=== PATIENT | female | born 1930 | race Caucasian/White ===

== ENCOUNTER 2018-07-02 10:23 | Observation (INO) | payer OTHER ==
[~2018-07-02] VITALS: Ht 162.6 cm; Wt 62.6 kg
--- NOTE | ~2018-07-02 | P ---
[facility] [place] [address] PROCEDURE REPORT Name: MARK KIRKLAND Room #: 207-P [facility]..#: [id number] Admission: 07/02/18 Attend Phys: Chad Cadet MD Discharge: Date of : [birth year] Report #: [id number] THIS REPORT FOR: //name// CC: Jevon Cadet PREOPERATIVE DIAGNOSIS: Sick sinus syndrome. POSTOPERATIVE DIAGNOSIS: Sick sinus syndrome. PROCEDURES PERFORMED: Dual chamber pacemaker implantation. HISTORY: The patient is an 87-year-old with a history of paroxysmal atrial fibrillation on amiodarone therapy. She has developed symptomatic bradycardia despite stopping the amiodarone therapy. She is here for dual-chamber pacemaker implantation with the plans of resuming amiodarone post-device implant. ANESTHESIA: The patient underwent MAC anesthesia with no anesthesia related complications. DESCRIPTION OF PROCEDURE: The patient underwent informed consent. We discussed the details of the procedure including the risks, which include but not limited to bleeding, infection, vascular damage, cardiac perforation and pneumothorax. She understood these risks and was willing to proceed. The patient was brought to the EP laboratory in a fasting and sedated state, prepped and draped in a sterile fashion, received IV antibiotics and underwent a venogram showing patency of left axillary vein. Next, I injected lidocaine at the incision site. Incision was made. A pocket was created over the prepectoral fascia and then access was obtained twice to the left axillary vein. I did accidentally stick the axillary artery once, but held pressure and there was no recurrent bleeding. Next, sheaths were positioned using the modified Seldinger technique and then I placed a lead into the right ventricular apex and another lead into the right atrial appendage both with adequate pacing and sensing thresholds. These leads were sutured to the prepectoral fascia and then connected to the device. The pocket was irrigated with vancomycin and then I closed the pocket in three layers using 2-0 for the deep layer, 3-0 for the middle layer and 4-0 for the subcuticular layer. Surgical glue was placed to the outer skin layer. The patient awoke neurologically hemodynamically intact with no complications and no significant bleeding. The implanted pacemaker was an MRI compatible device given her history of arthritis and hip replacements and need for future imaging also with peripheral vascular disease with an upcoming carotid endarterectomy. The implanted pacemaker is [employer], model #EM7142, serial #[id number]. The atrial lead was a [employer] model #PCD3248M, serial #[id number] with a P-wave of 1.2 millivolts, pacing impedance of 410 ohms and the pacing threshold of 1.5 volts at 0.4 milliseconds. [facility] [address] [place] [address] PROCEDURE REPORT Name: MARK KIRKLAND Room #: 207-P [facility] M.R.#: [id number] Admission: 07/02/18 Attend Phys: Chad Cadet MD Discharge: Date of : 07/10/[birth year] Report #: [id number] lead was a [employer] model #CED0264A, serial #[id number] with an R-wave of 8.3 millivolts, a pacing impedance of 560 ohms and the pacing threshold of 0.5 volts at 0.4 milliseconds. The device was programmed to the DDDR 60-120 mode. Of note, it appears that the patient does have some impairment in AV conduction as well as AV block was at around 90 beats per minute. Therefore, the chronic RV pacing may be unavoidable. CONCLUSIONS: 1. Successful dual-chamber pacemaker implantation. 2. Satisfactory atrial and ventricular pacing and sensing thresholds. By: [id number] Chad Cadet MD /nt
--- NOTE | ~2018-07-02 | D ---
[facility] [place] [address] DISCHARGE SUMMARY Name: MARK KIRKLAND Room #: 207-P [facility] MAscencion#: [id number] Admission: 07/02/18 Attend Phys: Chad Cadet MD Discharge: 07/03/18 Date of : [birth year]/10/[birth year] Report #: [id number] THIS REPORT FOR: //name// CC: Jevon Cadet DATE OF SERVICE: 07/03/2018 DISCHARGE DIAGNOSES: 1. Sick sinus syndrome. 2. Tachycardia-bradycardia syndrome. 3. Symptomatic bradycardia. 4. Paroxysmal atrial fibrillation. PROCEDURES PERFORMED: Dual chamber [employer] pacemaker implantation. HISTORY OF PRESENT ILLNESS: The patient is an 87-year-old with history of recurrent paroxysmal atrial fibrillation who has developed worsening bradycardia on amiodarone therapy. This was stopped, but she has continued to have symptomatic bradycardia and therefore she is here for dual chamber pacemaker implantation. She underwent successful implantation of a [employer] MRI compatible dual chamber pacemaker without complications. HOSPITAL COURSE: The patient was monitored in the CCU overnight. On the day of discharge, the patient was doing well and denied any chest pain, shortness of breath, fevers or chills. On physical exam, heart was regular rate and rhythm. Lungs were clear to auscultation bilaterally and her incision was healing nicely with no hematoma. On telemetry, she was in an atrial paced with occasional ventricular paced rhythm. Her device interrogation was performed and was within normal limits. A chest x-ray was performed, which I personally visualized showing normal lead position and no pneumothorax. As such, she was deemed stable for discharge home. She was instructed to resume her amiodarone today. She can resume her warfarin as well. All other medications remain unchanged. Discharge instructions were reviewed and she will follow up with me in 7-10 days for site check. By: [id number] Chad Cadet MD /nt
[~2018-07-02 10:23] MED LIST: ACYCLOVIR 400400 MG PO; ADULT LOW DOSE81 MG PO; ALPHA LIPOIC AC50 M1 PO; AMLODIPINE BESYL5 M1 PO; ASPIRIN EC81 M1 PO; CALCITONIN-SAL3.7 ML NASAL; CALCITRIOL1 MCG/1 M5 NASAL; CALCIUM CITRAT1 EA14 PO; CIPROFLOXACIN500 M1 PO; COUMADIN 3 MG TA3 M1 PO; FENTANYL PA12 MCG/H1 TOP; FENTANYL PA12 MCG/HR TP; FISH OIL 1,001000 M1 PO; FLAGYL500 MG PO; HYDROCHLOROTHIA25 M1 PO; HYDROCODON-ACE1 EAC2 PO; HYDROCODON-ACE1 EAC7 PO; HYDROCODON-ACE1 EAC8 PO; HYDROCODONE-AP1 EAC6 PO; K-DUR10 MEQ PO; KEFLEX500 MG PO; KLOR-CON PO; L-LYSINE500 M1 PO; LASIX 20 MG TAB20 MG PO; LASIX 40 MG TAB40 M1 PO; LASIX 40 MG TAB40 M2 PO; LEVOTHYROXIN0.112 M1 PO; LIPITOR 20 MG T20 M1 PO; LIPOIC ACID PO; MIACALCIN; MIRALAX17 GM PO; MUPIROCIN22 GM TOP; NAPROSYN500 MG PO; NORCO 10-325 T1 EACH PO; NORCO 7.5-3251 EACH PO; NORVASC 5 MG TAB5 MG PO; NYAMYC15 GM TOP; PACERONE 200 M200 M1 PO; PREVACID15 MG PO; PROAIR HFA8.5 GM INH; ROXICODONE5 M1 PO; SENNA PO; SYNTHROID175 MCG PO; TOPROL XL25 MG PO; TRAMADOL HCL100 MG PO; TYLENOL325 MG PO; ULTRAM ER100 MG PO; ZOFRAN4 MG PO
[2018-07-02 10:53] LABS: ABSOLUTE NEUTROPHILS 4.5 thou/uL (1.4-8.2); BASOPHILS 0.8 % (0.0-2.0); HEMATOCRIT 38.7 % (37.0-47.0); LYMPHOCYTES 22.6 % (24.0-44.0); MCH 30.7 pg (26.0-34.0); MCHC 33.5 g/dL (28.0-37.0); MCV 91.7 fL (80.0-100.0); MONOCYTES 8.1 % (1.0-8.0); PLATELET COUNT 197 thou/uL (150-400); POLYS 66.5 % (36.0-66.0); RBC 4.22 mil/uL (4.20-5.00); RDW 14.9 % (10.5-14.5); WBC 6.8 thou/uL (4.0-11.0)
[2018-07-02 11:03] LABS: CALCIUM 10.1 mg/dL (8.5-10.1); CREATININE 1.7 mg/dL (0.6-1.0); POTASSIUM 3.8 mmol/L (3.5-5.1)
[2018-07-02 11:09] LABS: ALBUMIN 3.2 g/dL (3.4-5.0); APTT 26.4 Seconds (24.5-32.8); INR 1.1; PROTIME 10.9 Seconds (9.3-11.4); TOTAL BILIRUBIN 0.4 mg/dL (<0.1-1.0); TOTAL PROTEIN 7.5 g/dL (6.4-8.2)
[2018-07-02 11:41] VITALS: BP 181/91
[2018-07-02] MEDS ORDERED: NORVASC2.5 MG PO (11:52)
[2018-07-02] MEDS ORDERED: LOSARTAN POTAS100 MG PO (12:00)
[2018-07-02] MEDS ORDERED: OMEPRAZOLE 20 M20 M1 PO (12:01)
[2018-07-02 17:03] VITALS: BP 158/83
[2018-07-02 20:40] VITALS: BP 147/59
[2018-07-03 00:15] VITALS: BP 157/61
[2018-07-03 04:45] VITALS: BP 147/60
[2018-07-03 07:58] VITALS: BP 176/90
[2018-07-03] MEDS ORDERED: PACERONE 200 M200 M1 PO (08:38)
[2018-07-03 11:01] VITALS: BP 176/90
[2018-07-03 11:05] VITALS: BP 134/45
[2018-07-03 15:16] VITALS: BP 176/90
== END 2018-07-03 15:16 | disposition home or self-care (01) ==
LOC: CATH 10:23 → 2N 16:59
PROVIDERS: Internal Medicine Cardiovascular Disease
DX: I49.5 Sick sinus syndrome (principal); I48.0 Paroxysmal atrial fibrillation
CPT/HCPCS: 62110; 62900; 70005